=== PATIENT | male | born 1940 | race Caucasian/White ===

== ENCOUNTER 2021-07-26 10:08 | Day surgery (SDC) | payer MEDICARE, OTHER ==
[~2021-07-26] VITALS: Ht 167.6 cm; Wt 55.5 kg
[~2021-07-26 10:08] MED LIST: CHOL500045 PO; DIGO250T3 PO; ERTA1VIA IV; FERR324T8 PO; HYDR1TAB53 PO; OMEP-110 PO; RIVA20TA PO
[2021-07-26] MEDS ORDERED: DIPHENHYDRAMINE 50 MG/ML, 1ML IVPush ONE (11:00)
[2021-07-26] MEDS ORDERED: SODIUM CHLORIDE 0.9% 1,000 ML IV SCH ×2 (11:00→13:00)
[2021-07-26] MEDS ORDERED: BRIN8DRO EACHEYE (11:08)
[2021-07-26] MEDS ORDERED: VIT1TABL34 PO (11:08)
[2021-07-26] MEDS ORDERED: APIX5TAB PO (11:08)
[2021-07-26] MEDS ORDERED: GUAI12009 PO (11:08)
[2021-07-26] MEDS ORDERED: BUDE10.7 PO (11:11)
[2021-07-26] MEDS ORDERED: LEVO25TA2 PO (11:11)
[2021-07-26 11:20] VITALS: BP 132/57
[2021-07-26] MEDS ORDERED: DIPHENHYDRAMINE 50 MG/ML, 1ML ONE (11:25)
[2021-07-26] MEDS ORDERED: VERAPAMIL 2.5 MG/ML, 2ML ONE (11:38)
[2021-07-26] MEDS ORDERED: HEPARIN 1,000 UNITS/ML, 10ML ONE (11:38)
[2021-07-26] MEDS ORDERED: LIDOCAINE-MPF 1%, 5ML ONE (11:38)
[2021-07-26] MEDS ORDERED: FENTANYL PF 100 MCG/2ML ONE (11:38)
[2021-07-26] MEDS ORDERED: MIDAZOLAM 1 MG/ML, 2ML ONE (11:38)
== END 2021-07-26 15:28 | disposition home or self-care (01) ==
LOC: CACL 10:08
PROVIDERS: ATTEND Internal Medicine Cardiovascular Disease
DX: R06.02 Shortness of breath (principal); I25.10 Atherosclerotic heart disease of native coronary artery without angina pectoris; I27.89 Other specified pulmonary heart diseases; G47.30 Sleep apnea, unspecified; Z79.899 Other long term (current) drug therapy; Z79.01 Long term (current) use of anticoagulants; Z98.890 Other specified postprocedural states
CPT/HCPCS: 82803; 93460; 99156; 99157; C1769; C1894; J1200; J1644; J2250; J3010; Q9967; 93453